=== PATIENT | male | born 1960 | race African-American/Black ===

== ENCOUNTER 2022-10-31 17:02 | Inpatient (IN) | payer OTHER ==
[2022-10-31 18:03] VITALS: BMI 30.2
[2022-10-31] MEDS ORDERED: guaiFENesin 600 MG TABLET.ER (FP) PO PRN (21:21)
[2022-10-31] MEDS ORDERED: MAGNESIUM HYDROX 2400MG/30ML ORAL SUSPENSION 30 ML CUP PO PRN (21:21)
[2022-10-31] MEDS ORDERED: DICYCLOMINE HCL 10 MG CAPSULE PO PRN (21:21)
[2022-10-31] MEDS ORDERED: MAG HYDROX/AL HYDROX/SIMETH 30 ML UNIT-DOSE CUP PO PRN (21:21)
[2022-10-31] MEDS ORDERED: ONDANSETRON *ODT* 4 MG TABLET SL PRN (21:21)
[2022-10-31] MEDS ORDERED: IBUPROFEN 400 MG TABLET (FP) PO PRN (21:21)
[2022-10-31] MEDS ORDERED: LOPERAMIDE HCL 2 MG CAPSULE PO PRN (21:21)
[2022-10-31] MEDS ORDERED: BENZOCAINE/MENTHOL (CHLORASEPTIC ) LOZENGE MM PRN (21:21)
[2022-10-31] MEDS ORDERED: BISMUTH SUBSALICYLATE 524 MG/30 ML PO PRN (21:21)
[2022-10-31] MEDS ORDERED: POLYETHYLENE GLYCOL (HEALTHYLAX) 3350 17 GM PACKET PO PRN (21:21)
[2022-10-31] MEDS ORDERED: NALOXONE HCL 0.4 MG/ML VIAL IM PRN (21:21)
[2022-10-31] MEDS ORDERED: NICOTINE 10 MG CARTRIDGE (INHALER) IH PRN (21:21)
[2022-10-31] MEDS ORDERED: IBUPROFEN 600 MG TABLET (FP) PO PRN (21:21)
[2022-10-31] MEDS ORDERED: NALOXONE HCL (KLOXXADO) 8 MG SPRAY NS PRN (21:21)
[2022-10-31] MEDS ORDERED: BENZONATATE 200 MG CAPSULE PO PRN (21:21)
[2022-10-31] MEDS ORDERED: NICOTINE POLACRILEX 2 MG GUM BUC PRN (21:24)
[2022-11-01] MEDS: THIAMINE HCL 100 MG TABLET (FP) PO SCH ×2 (04:11→21:46)
[2022-11-01] MEDS: MELATONIN 5 MG TABLETS PO SCH ×2 (04:11→21:46)
[2022-11-01] MEDS: METHOCARBAMOL 500 MG TABLET PO PRN ×2 (04:23→20:48)
[2022-11-01] MEDS: PRENATAL VITAMINS W/ FOLIC ACID TABLET (FP) PO SCH (10:15)
[2022-11-01] MEDS: NICOTINE 14 MG/24 HOURS TOPICAL PATCH TD SCH (10:15)
[2022-11-01 10:29] LABS: HEMATOCRIT 33.6 % (35.4-49); HEMOGLOBIN 11.5 GM/dL (11.7-16.9); MCH 30.7 pg (25.7-33.7); MCHC 34.1 g/dl (32.0-35.9); MEAN CELL VOLUME 89.9 fl (80-96); MEAN PLT VOLUME 10.6 fl (7.5-11.1); PLATELET COUNT 217 10^3/uL (134-434); RBC 3.74 M/mm3 (4.00-5.60); WHITE BLOOD COUNT 4.9 K/mm3 (4.0-10.0)
[2022-11-01 10:32] LABS: POTASSIUM 4.2 mmol/L (3.5-5.1)
[2022-11-01 10:36] LABS: CALCIUM 8.8 mg/dL (8.5-10.1)
[2022-11-01 10:37] LABS: ALBUMIN 2.7 g/dl (3.4-5.0); BLOOD UREA NITROGEN 12.3 mg/dL (7-18)
[2022-11-01 10:40] LABS: CREATININE 0.9 mg/dL (0.55-1.3)
[2022-11-01 10:41] LABS: BILIRUBIN,TOTAL 0.6 mg/dL (0.2-1)
[2022-11-01 10:42] LABS: TOT PROT 5.3 g/dl (6.4-8.2)
[2022-11-01 12:18] LABS: HIV INTERPRETATION NEGATIVE (NEGATIVE)
[2022-11-01] MEDS: ACETAMINOPHEN 325 MG TABLET (FP) PO PRN (20:46)
[2022-11-02] MEDS ORDERED: LORazepam 0.5 MG TABLET PO PRN
[2022-11-02] MEDS: NICOTINE 14 MG/24 HOURS TOPICAL PATCH TD SCH (10:44)
[2022-11-02] MEDS: LORazepam 1 MG TABLET PO SCH ×3 (10:44→22:16)
[2022-11-02] MEDS: PRENATAL VITAMINS W/ FOLIC ACID TABLET (FP) PO SCH (10:44)
[2022-11-02] MEDS: METHOCARBAMOL 500 MG TABLET PO PRN ×2 (17:16→22:17)
[2022-11-02] MEDS: THIAMINE HCL 100 MG TABLET (FP) PO SCH (22:15)
[2022-11-02] MEDS: MELATONIN 5 MG TABLETS PO SCH (22:15)
[2022-11-03] MEDS: LORazepam 0.5 MG TABLET PO SCH ×4 (05:51→22:12)
[2022-11-03] MEDS: PRENATAL VITAMINS W/ FOLIC ACID TABLET (FP) PO SCH (10:18)
[2022-11-03] MEDS: NICOTINE 14 MG/24 HOURS TOPICAL PATCH TD SCH (10:18)
[2022-11-03] MEDS: THIAMINE HCL 100 MG TABLET (FP) PO SCH (22:12)
[2022-11-03] MEDS: MELATONIN 5 MG TABLETS PO SCH (22:13)
[2022-11-03] MEDS: ACETAMINOPHEN 325 MG TABLET (FP) PO PRN (22:14)
[2022-11-03] MEDS: METHOCARBAMOL 500 MG TABLET PO PRN (22:14)
[2022-11-04] MEDS ORDERED: LORazepam 0.5 MG TABLET PO ONE (05:00)
[2022-11-04] MEDS: PRENATAL VITAMINS W/ FOLIC ACID TABLET (FP) PO SCH (10:19)
[2022-11-04] MEDS: NICOTINE 14 MG/24 HOURS TOPICAL PATCH TD SCH (10:19)
[2022-11-04] MEDS ORDERED: LISINOPRIL 20 MG TABLET PO ONE (12:56)
[2022-11-04] MEDS: ASPIRIN 81 MG CHEWABLE TABLETS PO SCH (13:37)
[2022-11-04] MEDS: amLODIPine BESYLATE 10 MG TABLET (FP) PO SCH (13:38)
[2022-11-04] MEDS: MELATONIN 5 MG TABLETS PO SCH (22:08)
[2022-11-04] MEDS: THIAMINE HCL 100 MG TABLET (FP) PO SCH (22:08)
[2022-11-04] MEDS: METHOCARBAMOL 500 MG TABLET PO PRN (22:09)
[2022-11-05 06:34] VITALS: RESP 16
[2022-11-05 09:28] VITALS: BP 140/88; PULSE 72; TEMP 97.9
[2022-11-05] MEDS: NICOTINE 14 MG/24 HOURS TOPICAL PATCH TD SCH (10:04)
[2022-11-05] MEDS: amLODIPine BESYLATE 10 MG TABLET (FP) PO SCH (10:04)
[2022-11-05] MEDS: ASPIRIN 81 MG CHEWABLE TABLETS PO SCH (10:04)
[2022-11-05] MEDS: PRENATAL VITAMINS W/ FOLIC ACID TABLET (FP) PO SCH (10:05)
== END 2022-11-05 11:03 | disposition other institution (70) | DRG 774 ==
LOC: YASAS 17:02 → Y3N 11-01 03:28
PROVIDERS: ADMIT Allergy & Immunology; ATTEND Allergy & Immunology
PROC: HZ2ZZZZ Detoxification Services for Substance Abuse Treatment (ICD-10-PCS; principal; 2022-11-01)
DX: F12.20 Cannabis dependence, uncomplicated (principal); F14.20 Cocaine dependence, uncomplicated; F17.210 Nicotine dependence, cigarettes, uncomplicated; I10 Essential (primary) hypertension
CPT/HCPCS: 36415; 80053; 85027; 86780; 87389; 93005; 93010; C9803-CS; U0003; U0005

== ENCOUNTER 2022-11-05 11:07 | Inpatient (IN) | payer OTHER ==
[2022-11-05 11:28] VITALS: BP 140/75; PULSE 69; RESP 18; TEMP 97.7
[2022-11-05] MEDS ORDERED: BACLOFEN 10 MG TABLET (FP) PO PRN (12:02)
[2022-11-05] MEDS ORDERED: IBUPROFEN 400 MG TABLET (FP) PO PRN (12:02)
[2022-11-05] MEDS ORDERED: NALOXONE HCL 0.4 MG/ML VIAL IVPUSH PRN (12:02)
[2022-11-05] MEDS ORDERED: NICOTINE 10 MG CARTRIDGE (INHALER) IH PRN (12:02)
[2022-11-05] MEDS ORDERED: NICOTINE POLACRILEX 4 MG GUM BUC PRN (12:02)
[2022-11-05] MEDS ORDERED: guaiFENesin 600 MG TABLET.ER (FP) PO PRN (12:02)
[2022-11-05] MEDS ORDERED: NICOTINE 7 MG/24 HOURS TOPICAL PATCH TD PRN (12:02)
[2022-11-05] MEDS ORDERED: AMMONIUM LACTATE 12% LOTION 225 GM BOTTLE TP PRN (12:02)
[2022-11-05] MEDS ORDERED: LOPERAMIDE HCL 2 MG CAPSULE PO PRN (12:02)
[2022-11-05] MEDS ORDERED: NALOXONE HCL (KLOXXADO) 8 MG SPRAY NS PRN (12:02)
[2022-11-05] MEDS ORDERED: BENZONATATE 200 MG CAPSULE PO PRN (12:02)
[2022-11-05] MEDS ORDERED: ACETAMINOPHEN 325 MG TABLET (FP) PO PRN (12:02)
[2022-11-05] MEDS ORDERED: IBUPROFEN 600 MG TABLET (FP) PO PRN (12:02)
[2022-11-05] MEDS ORDERED: hydrOXYzine PAMOATE 25 MG CAPSULE (FP) PO PRN (12:02)
[2022-11-05] MEDS ORDERED: MAG HYDROX/AL HYDROX/SIMETH 30 ML UNIT-DOSE CUP PO PRN (12:02)
[2022-11-05] MEDS ORDERED: BENZOCAINE/MENTHOL (CHLORASEPTIC ) LOZENGE MM PRN (12:02)
[2022-11-05] MEDS ORDERED: COLLOIDAL OATMEAL 1 BAR EACH TP PRN (12:02)
[2022-11-05] MEDS ORDERED: MAGNESIUM HYDROX 2400MG/30ML ORAL SUSPENSION 30 ML CUP PO PRN (12:02)
[2022-11-05] MEDS ORDERED: POLYETHYLENE GLYCOL (HEALTHYLAX) 3350 17 GM PACKET PO PRN (12:02)
[2022-11-05] MEDS ORDERED: THIAMINE HCL 100 MG TABLET (FP) PO SCH (22:00)
[2022-11-05] MEDS ORDERED: MELATONIN 5 MG TABLETS PO SCH (22:00)
[2022-11-06] MEDS ORDERED: amLODIPine BESYLATE 10 MG TABLET (FP) PO SCH (10:00)
[2022-11-06] MEDS ORDERED: ASPIRIN 81 MG CHEWABLE TABLETS PO SCH (10:00)
[2022-11-06] MEDS ORDERED: LISINOPRIL 5 MG TABLET PO SCH (10:00)
[2022-11-06] MEDS ORDERED: PRENATAL VITAMINS W/ FOLIC ACID TABLET (FP) PO SCH (10:00)
== END 2022-11-05 16:35 | disposition left against medical advice (07) | DRG 770 ==
LOC: YASAS 11:07 → Y3W 11:08
PROVIDERS: ADMIT Allergy & Immunology; ATTEND Psychiatry & Neurology Pain Medicine
PROC: HZ42ZZZ Group Counseling for Substance Abuse Treatment, Cognitive-Behavioral (ICD-10-PCS; principal; 2022-11-05)
DX: F11.20 Opioid dependence, uncomplicated (principal); F14.20 Cocaine dependence, uncomplicated; F17.210 Nicotine dependence, cigarettes, uncomplicated; I10 Essential (primary) hypertension

== ENCOUNTER 2023-01-06 09:26 | Inpatient (IN) | payer OTHER ==
[2023-01-06 09:52] VITALS: BMI 26.3
[2023-01-06] MEDS ORDERED: NALOXONE HCL 0.4 MG/ML VIAL IM PRN (10:40)
[2023-01-06] MEDS ORDERED: COLLOIDAL OATMEAL 1 BAR EACH TP PRN (10:40)
[2023-01-06] MEDS ORDERED: IBUPROFEN 400 MG TABLET (FP) PO PRN (10:40)
[2023-01-06] MEDS ORDERED: NICOTINE POLACRILEX 4 MG GUM BUC PRN (10:40)
[2023-01-06] MEDS ORDERED: BENZOCAINE/MENTHOL (CHLORASEPTIC ) LOZENGE MM PRN (10:40)
[2023-01-06] MEDS ORDERED: NALOXONE HCL (KLOXXADO) 8 MG SPRAY NS PRN (10:40)
[2023-01-06] MEDS ORDERED: LOPERAMIDE HCL 2 MG CAPSULE PO PRN (10:40)
[2023-01-06] MEDS ORDERED: AMMONIUM LACTATE 12% LOTION 225 GM BOTTLE TP PRN (10:40)
[2023-01-06] MEDS ORDERED: IBUPROFEN 600 MG TABLET (FP) PO PRN (10:40)
[2023-01-06] MEDS ORDERED: BENZONATATE 200 MG CAPSULE PO PRN (10:40)
[2023-01-06] MEDS ORDERED: MAG HYDROX/AL HYDROX/SIMETH 30 ML UNIT-DOSE CUP PO PRN (10:40)
[2023-01-06] MEDS ORDERED: MAGNESIUM HYDROX 2400MG/30ML ORAL SUSPENSION 30 ML CUP PO PRN (10:40)
[2023-01-06] MEDS ORDERED: guaiFENesin 600 MG TABLET.ER (FP) PO PRN (10:40)
[2023-01-06] MEDS ORDERED: POLYETHYLENE GLYCOL (HEALTHYLAX) 3350 17 GM PACKET PO PRN (10:40)
[2023-01-06] MEDS ORDERED: hydrOXYzine PAMOATE 25 MG CAPSULE (FP) PO PRN (10:40)
[2023-01-06] MEDS ORDERED: ACETAMINOPHEN 325 MG TABLET (FP) PO PRN (10:40)
[2023-01-06 11:46] VITALS: RESP 18
[2023-01-06 17:28] LABS: URINE APPEARANCE CLEAR; URINE BILIRUBIN NEGATIVE (NEGATIVE); URINE COLOR YELLOW; URINE GLUCOSE (UA) NEGATIVE (NEGATIVE); URINE KETONE NEGATIVE (NEGATIVE); URINE LEUK ESTERASE NEGATIVE (NEGATIVE); URINE NITRITE NEGATIVE (NEGATIVE); URINE PROTEIN NEGATIVE (NEGATIVE)
[2023-01-06] MEDS: MELATONIN 5 MG TABLETS PO SCH (21:07)
[2023-01-06] MEDS: THIAMINE HCL 100 MG TABLET (FP) PO SCH (21:07)
[2023-01-07] MEDS: ASPIRIN 81 MG CHEWABLE TABLETS PO SCH (09:45)
[2023-01-07] MEDS: NICOTINE 14 MG/24 HOURS TOPICAL PATCH TD SCH (09:45)
[2023-01-07] MEDS: amLODIPine BESYLATE 10 MG TABLET (FP) PO SCH (09:45)
[2023-01-07] MEDS: PRENATAL VITAMINS W/ FOLIC ACID TABLET (FP) PO SCH (09:45)
[2023-01-07] MEDS: CHOLECALCIFEROL (VIT D3) 400 UNIT (10 MCG) TABLET PO SCH (13:33)
[2023-01-07] MEDS: THIAMINE HCL 100 MG TABLET (FP) PO SCH (21:05)
[2023-01-07] MEDS: MELATONIN 5 MG TABLETS PO SCH (21:05)
[2023-01-08] MEDS: NICOTINE 14 MG/24 HOURS TOPICAL PATCH TD SCH (09:30)
[2023-01-08] MEDS: ASPIRIN 81 MG CHEWABLE TABLETS PO SCH (09:30)
[2023-01-08] MEDS: amLODIPine BESYLATE 10 MG TABLET (FP) PO SCH (09:30)
[2023-01-08] MEDS: PRENATAL VITAMINS W/ FOLIC ACID TABLET (FP) PO SCH (09:30)
[2023-01-08] MEDS: CHOLECALCIFEROL (VIT D3) 400 UNIT (10 MCG) TABLET PO SCH (09:31)
[2023-01-08] MEDS: THIAMINE HCL 100 MG TABLET (FP) PO SCH (21:13)
[2023-01-08] MEDS ORDERED: MELATONIN 5 MG TABLETS PO SCH (22:00)
[2023-01-09 07:00] VITALS: BP 128/72; PULSE 60; TEMP 97.6
[2023-01-09] MEDS: PRENATAL VITAMINS W/ FOLIC ACID TABLET (FP) PO SCH (09:47)
[2023-01-09] MEDS: amLODIPine BESYLATE 10 MG TABLET (FP) PO SCH (09:47)
[2023-01-09] MEDS: ASPIRIN 81 MG CHEWABLE TABLETS PO SCH (09:47)
[2023-01-09] MEDS: CHOLECALCIFEROL (VIT D3) 400 UNIT (10 MCG) TABLET PO SCH (09:48)
[2023-01-09] MEDS: NICOTINE 14 MG/24 HOURS TOPICAL PATCH TD SCH (09:50)
== END 2023-01-09 12:58 | disposition home or self-care (01) | DRG 772 ==
LOC: YASAS 09:26 → Y5N 10:46
PROVIDERS: ADMIT Allergy & Immunology; ATTEND Psychiatry & Neurology Pain Medicine
PROC: HZ42ZZZ Group Counseling for Substance Abuse Treatment, Cognitive-Behavioral (ICD-10-PCS; principal; 2023-01-06)
DX: F14.20 Cocaine dependence, uncomplicated (principal); F17.210 Nicotine dependence, cigarettes, uncomplicated; I10 Essential (primary) hypertension; I48.91 Unspecified atrial fibrillation
CPT/HCPCS: 81003; 87635